=== PATIENT | female | born 1970 | race Caucasian/White ===

== ENCOUNTER 2016-05-30 15:19 | Inpatient (IN) | payer BC ==
[2016-05-30] MEDS ORDERED: DEXTROSE 5%-1/2 NORMAL SALINE 1,000 ML IV PRN (15:58)
[2016-05-30] MEDS ORDERED: INFLUENZA ADLT QUAD (36MOS+) 2016-17 VAC 0.5 ML SYR IM PRN (16:34)
[2016-05-30 17:20] LABS: ABSOLUTE BASOPHILS # (AUTO) 0.1 10^3/uL (0.0-0.2); ABSOLUTE EOSINOPHILS # (AUTO) 0.2 10^3/uL (0.0-0.6); ABSOLUTE LYMPHOCYTES (AUTO) 2.9 10^3/uL (0.5-4.7); ABSOLUTE MONOCYTES (AUTO) 0.6 10^3/uL (0.1-1.4); ABSOLUTE NEUT (AUTO) 6.3 10^3/uL (1.7-8.2); BASOPHILS % (AUTO) 0.7 % (0-2); EOSINOPHILS % (AUTO) 2.2 % (0-6); HEMATOCRIT 37.1 % (36.0-47.0); HEMOGLOBIN 12.6 g/dL (12.0-15.5); HGB HCT DIFFERENCE 0.7; MEAN CORPUSCULAR HEMOGLOBIN 29.2 pg (27.0-33.4); MEAN CORPUSCULAR HGB CONC 34.1 g/dL (32.0-36.0); MEAN CORPUSCULAR VOLUME 86 fl (80-97); MONOCYTES % (AUTO) 6.3 % (3-13); RED BLOOD COUNT 4.32 10^6/uL (3.72-5.28); RED CELL DISTRIBUTION WIDTH 12.6 % (11.5-14.0); SEGMENTED NEUTROPHILS % (AUTO) 61.8 % (42-78); WHITE BLOOD COUNT 10.1 10^3/uL (4.0-10.5)
[2016-05-30] MEDS: AMPICILLIN SODIUM/SULBACTAM NA 3 GM in NORMAL SALINE 100 ML IV SCH (17:37)
[2016-05-30 17:38] LABS: ALANINE AMINOTRANSFERASE 60 U/L (9-52); ALBUMIN 4.2 g/dL (3.5-5.0); ALKALINE PHOSPHATASE 82 U/L (38-126); ANION GAP 11 (5-19); ASPARTATE AMINO TRANSFERASE 42 U/L (14-36); BILIRUBIN,TOTAL 0.4 mg/dL (0.2-1.3); BLOOD UREA NITROGEN 25 mg/dL (7-20); CALCIUM 9.9 mg/dL (8.4-10.2); CARBON DIOXIDE 26 mmol/L (22-30); CHLORIDE 100 mmol/L (98-107); CREATININE RESULT 0.96 mg/dL (0.52-1.25); GLUCOSE 101 mg/dL (75-110); POTASSIUM 4.2 mmol/L (3.6-5.0); SODIUM 137.3 mmol/L (137-145); TOTAL PROTEIN 6.9 g/dL (6.3-8.2)
[2016-05-30] MEDS: OXYCODONE-ACETAMINOPHEN 5-325 MG TABLET PO PRN ×2 (18:20→18:28)
[2016-05-31] MEDS: AMPICILLIN SODIUM/SULBACTAM NA 3 GM in NORMAL SALINE 100 ML IV SCH ×4 (00:26→18:15)
[2016-05-31] MEDS: OXYCODONE-ACETAMINOPHEN 5-325 MG TABLET PO PRN (04:59)
[2016-05-31] MEDS ORDERED: ENOXAPARIN SODIUM INJ 40 MG/0.4 ML DISP.SYRIN SUBCUT SCH (10:00)
--- NOTE | 2016-05-31 12:43 | XCELERA REPORT ---
[address] [address] Lower Extremity Venous Evaluation Name: VASILIY PROCTOR Age: 45 yrs Gender: Female : 1970 Patient Status: Inpatient Patient Location: 5\[id number]\529\[id number]\A Study Date: 05/30/2016 04:24 PM Procedure: Color flow and duplex imaging bilaterally of the veins of the lower extremities as well as the Common Femoral veins. Reason For Study: leg swelling and pain Ordering Physician: SUSAN HOWELL Performed By: Lizabeth Canada Right Sided Venous Evaluation Normal vessel filling wall to wall, compression and augmentation as well as Colour flow down to the infrageniculate veins. Left Sided Venous Evaluation Normal vessel filling wall to wall, compression and augmentation as well as Colour flow down to the infrageniculate veins. Interpretation Summary No duplex evidence of DVT or obstruction in the bilateral lower extremities. : SUSAN HOWELL > Susan Howell
[2016-06-01] MEDS: AMPICILLIN SODIUM/SULBACTAM NA 3 GM in NORMAL SALINE 100 ML IV SCH ×2 (00:53→05:16)
[2016-06-01 02:45] LABS: APPEARANCE,URINE SLIGHTLY-CLOUDY; BILIRUBIN,URINE NEGATIVE (NEGATIVE); GLUCOSE, URINE NEGATIVE (NEGATIVE); KETONES,URINE NEGATIVE (NEGATIVE); LEUKOCYTE ESTERASE,URINE LARGE (NEGATIVE); NITRITE,URINE NEGATIVE (NEGATIVE); PROTEIN,URINE NEGATIVE (NEGATIVE); URINE SPECIFIC GRAVITY 1.012; UROBILINOGEN,URINE NEGATIVE mg/dL (<2.0)
[2016-06-01 08:04] VITALS: BP 119/72
--- NOTE | 2016-06-01 10:50 | PDOC PROGRESS REPORT ---
Subjective Progress Note for:: 05/31/16 Subjective:: The patient feels much better, no pain in left leg wound. Wants to go home. Physical Exam Vital Signs: Temp Pulse Resp BP Pulse Ox 98.2 F 99 18 119/72 100 05/31/16 12:00 05/31/16 12:00 05/31/16 12:00 05/31/16 12:00 05/31/16 12:00 Intake & Output 05/30/16 05/31/16 06/01/16 06:59 06:59 06:59 Intake Total 1325 Balance 1325 Weight 78.6 kg Additional comments: CONSTITUTIONAL:WDWN lady, moderately increased BMI. No acute distress. RESPIRATORY: Normal respiratory effort at rest. EXTREMITIES: lOWER: moderate chronic swelling on left. Area of erythema, skin swelling, is barely appreciable. Results Laboratory Results: 05/30/16 17:05 05/30/16 17:05 05/30/16 05/30/16 17:05 17:05 WBC 10.1 RBC 4.32 Hgb 12.6 Hct 37.1 MCV 86 MCH 29.2 MCHC 34.1 RDW 12.6 Plt Count 267 Seg Neutrophils % 61.8 Lymphocytes % 29.0 Monocytes % 6.3 Eosinophils % 2.2 Basophils % 0.7 Absolute Neutrophils 6.3 Absolute Lymphocytes 2.9 Absolute Monocytes 0.6 Absolute Eosinophils 0.2 Absolute Basophils 0.1 Sodium 137.3 Potassium 4.2 Chloride 100 Carbon Dioxide 26 Anion Gap 11 BUN 25 H Creatinine 0.96 Est GFR ( Amer) > 60 Est GFR (Non-Af Amer) > 60 Glucose 101 Calcium 9.9 Total Bilirubin 0.4 AST 42 H ALT 60 H Alkaline Phosphatase 82 Total Protein 6.9 Albumin 4.2 Assessment & Plan - Diagnosis (1) Cellulitis Qualifiers: Site of cellulitis: extremity Site of cellulitis of extremity: lower extremity Laterality: left Qualified Code(s): L03.116 - Cellulitis of left lower limb Is this a current diagnosis for this admission?: YesPlan: In this patient, with rapid response to IV antibiotic. I plan to disscharge her home on 06/01/16. With continued oral antibiotic.
--- NOTE | 2016-06-11 10:23 | DISCHARGE SUMMARY E ---
Discharge Summary NAME: VASILIY PROCTOR : 1970 AGE: 45Y ADMITTED: 05/30/2016 DISCHARGED: 06/01/2016 ADMITTING DIAGNOSES: 1. Cellulitis in the left leg. 2. Lymphedema of left leg. 3. Tobacco use disorder. 4. Depression with anxiety. 5. Hypertension. DISCHARGE DIAGNOSES: 1. Cellulitis in the left leg, improvement, almost resolution of cellulitis. 2. Lymphedema of left leg. 3. Tobacco use disorder. 4. Depression with anxiety. 5. Hypertension. HISTORY AND PHYSICAL: Please see admission H and P. HOSPITAL COURSE: The patient was admitted and placed on IV antibiotics. Normal precautions were taken and the patient was kept on her normal medication. The patient was re-evaluated on the day after admission and there was dramatic improvement in the left leg, less swelling, and the area of erythema and tenderness was almost invisible. The plan is to discharge the patient. The patient is to continue on oral Augmentin for 5-7 days. Follow up in the office by appointment. She is to continue her normal medications. She is to continue use of compression stockings. Follow up with Dr. Howell by appointment in 1 week. DICTATING PHYSICIAN: SUSAN HOWELL M.D. [id number] PHY#: [id number] ID: [id number] JOB#: [id number] ACCT: [id number] cc:SUSAN HOWELL M.D. >
== END 2016-06-01 08:50 | disposition home or self-care (01) | DRG 603 ==
LOC: 5 15:19
PROVIDERS: ADMIT Surgery; ATTEND Surgery
PROC: 3E0234Z Introduction of Serum, Toxoid and Vaccine into Muscle, Percutaneous Approach (ICD-10-PCS; principal; 2016-06-01)
DX: L03.116 Cellulitis of left lower limb (principal); I80.3 Phlebitis and thrombophlebitis of lower extremities, unspecified; I10 Essential (primary) hypertension; F17.210 Nicotine dependence, cigarettes, uncomplicated; F41.8 Other specified anxiety disorders; G47.00 Insomnia, unspecified; L81.9 Disorder of pigmentation, unspecified; F32.9 Major depressive disorder, single episode, unspecified; F41.9 Anxiety disorder, unspecified; Z90.49 Acquired absence of other specified parts of digestive tract; Z79.899 Other long term (current) drug therapy; Z23 Encounter for immunization
CPT/HCPCS: 36415; 80048; 80076; 81001; 85025; 90686; 93970; 94799; J0295; J1650

== ENCOUNTER → 2016-06-27 | Outpatient (CLI) | payer BC | LOC: RAD 20:50 | PROVIDERS: ATTEND Surgery | DX: I80.3 Phlebitis and thrombophlebitis of lower extremities, unspecified (principal) | CPT/HCPCS: 73720; A9576 ==

== ENCOUNTER 2017-07-27 15:11 | Emergency (ER) | payer BC ==
--- NOTE | 2017-07-27 16:44 | ER Document Report ---
ED Medical Screen (RME) - General Chief Complaint: Sore Throat Stated Complaint: BODY ACHES Time Seen by Provider: 07/27/17 16:34 TRAVEL OUTSIDE OF THE [place] IN LAST 30 DAYS: No - HPI Notes: 07/27/17 16:41 Patient is a 46-year-old female who presents to the ED complaining of a dull chest pain that is new for her. Patient states that she has never experienced this chest pain before and it started over the last day. Patient states that she also has pain radiating into her jaw and into her shoulders bilaterally. Patient has a past medical history of PAD with >80% occlusion to her left LE as well as hypertension. Patient states that she is otherwise eating and drinking without difficulties. She is urinating normally and having normal bowel movements. Patient states her next appointment with her vascular provider is the first weekend in July. Patient states that she is concerned about her heart and wants those tests performed. Patient states that she has not had any cold symptoms. Denies any headache, fever, URI, palpitations, syncope, cough, shortness of breath, wheeze, dyspnea, abdominal pain, nausea/vomiting/diarrhea, urinary retention, dysuria, hematuria, loss of control of bowel or bladder, muscle paralysis/weakness, or rash. I have treated and performed a rapid initial assessment of this patient. A comprehensive ED assessment and evaluation of the patient, analysis of test results and completion of medical decision making process will be conducted by additional ED providers. PHYSICAL EXAMINATION: GENERAL: Well-appearing, well-nourished and in no acute distress. A&Ox4. Answers questions appropriately. Vitals: Tachycardic 110 during my exam LUNGS: Breath sounds clear to auscultation bilaterally and equal. No wheezes rales or rhonchi. HEART: Regular rate and rhythm without murmurs, rubs, gallops. Chest: non-tender. no flail chest. PSYCH: anxious, normal affect. - Related Data Allergies/Adverse Reactions: Perch (fish) Allergy (Intermediate, Uncoded 05/30/16 17:55) Past Medical History - Past Medical History Cardiac Medical History: Reports: Hx Hypertension Pulmonary Medical History: Denies: Hx Asthma, Hx Tuberculosis Neurological Medical History: Denies: Hx Seizures GI Medical History: Reports: Hx Pancreatitis Psychiatric Medical History: Reports: Hx Depression Past Surgical History: Reports: Hx Cholecystectomy, Hx Herniorrhaphy. Denies: Hx Pacemaker - Immunizations Hx Diphtheria, Pertussis, Tetanus Vaccination: Yes Physical Exam - Vital signs Vitals: Temp Pulse Resp BP Pulse Ox 98.7 F 116 H 18 135/89 H 97 07/27/17 15:32 07/27/17 15:32 07/27/17 15:32 07/27/17 15:32 07/27/17 15:32 Course - Vital Signs Vital signs: Temp Pulse Resp BP Pulse Ox 98.7 F 116 H 18 135/89 H 97 07/27/17 15:32 07/27/17 15:32 07/27/17 15:32 07/27/17 15:32 07/27/17 15:32
[2017-07-27] MEDS ORDERED: ASPIRIN 81 MG TABLET, CHEWABLE PO ONE (16:48)
[2017-07-27] MEDS ORDERED: LORAZEPAM INJ 2 MG/1 ML VIAL IV ONE ×2 (16:48→23:02)
--- NOTE | 2017-07-27 17:39 | RADIOLOGY REPORT (SQ) ---
EXAM DESCRIPTION: CHEST SINGLE VIEW COMPLETED DATE/TIME: 07/27/2017 5:11 pm REASON FOR STUDY: chest pain COMPARISON: 03/21/2012 EXAM PARAMETERS: NUMBER OF VIEWS: One view. TECHNIQUE: Single frontal radiographic view of the chest acquired. RADIATION DOSE: NA LIMITATIONS: None. FINDINGS: LUNGS AND PLEURA: No acute opacities, masses or pneumothorax. No pleural effusion. MEDIASTINUM AND HILAR STRUCTURES: Stable. HEART AND VASCULAR STRUCTURES: Heart normal in size. Normal vasculature. BONES: No acute findings. HARDWARE: None in the chest. OTHER: No other significant finding. IMPRESSION: NO ACUTE RADIOGRAPHIC FINDING IN THE CHEST. TECHNICAL DOCUMENTATION: JOB ID: [id number] [place]-72 2010 [employer]- All Rights Reserved Reading location - IP/workstation name: [email or web address]
[2017-07-27 17:55] LABS: ABSOLUTE BASOPHILS # (AUTO) 0.1 10^3/uL (0.0-0.2); ABSOLUTE EOSINOPHILS # (AUTO) 0.2 10^3/uL (0.0-0.6); ABSOLUTE LYMPHOCYTES (AUTO) 2.2 10^3/uL (0.5-4.7); ABSOLUTE MONOCYTES (AUTO) 0.6 10^3/uL (0.1-1.4); ABSOLUTE NEUT (AUTO) 9.4 10^3/uL (1.7-8.2); BASOPHILS % (AUTO) 0.7 % (0-2); EOSINOPHILS % (AUTO) 1.8 % (0-6); HEMATOCRIT 35.5 % (36.0-47.0); HEMOGLOBIN 12.2 g/dL (12.0-15.5); LYMPHOCYTES % (AUTO) 17.8 % (13-45); MEAN CORPUSCULAR HEMOGLOBIN 29.5 pg (27.0-33.4); MEAN CORPUSCULAR HGB CONC 34.2 g/dL (32.0-36.0); MEAN CORPUSCULAR VOLUME 86 fl (80-97); MONOCYTES % (AUTO) 4.8 % (3-13); PLATELET COUNT 337 10^3/uL (150-450); RED BLOOD COUNT 4.13 10^6/uL (3.72-5.28); RED CELL DISTRIBUTION WIDTH 12.9 % (11.5-14.0); SEGMENTED NEUTROPHILS % (AUTO) 74.9 % (42-78); TOTAL CELLS COUNTED % (AUTO) 100 %; WHITE BLOOD COUNT 12.6 10^3/uL (4.0-10.5)
--- NOTE | 2017-07-27 17:55 | EKG REPORT ---
SEVERITY:- OTHERWISE NORMAL ECG - SINUS TACHYCARDIA : Confirmed by: Jacinto Rios MD 27-Jul-2017 17:55:03
[2017-07-27 17:58] LABS: PROTHROMBIN TIME 12.6 SEC (11.4-15.4)
[2017-07-27 17:59] LABS: PARTIAL THROMBOPLASTIN TIME 34.2 SEC (23.5-35.8)
[2017-07-27 19:25] LABS: CREATINE KINASE MB 2.83 ng/mL (<4.55)
[2017-07-27 19:27] LABS: TROPONIN I < 0.012 ng/mL
--- NOTE | 2017-07-27 19:56 | ER Document Report ---
ED General - General Chief Complaint: Sore Throat Stated Complaint: BODY ACHES Time Seen by Provider: 07/27/17 16:34 Mode of Arrival: Ambulatory Information source: Patient Notes: Patient is a 46-year-old female who presents to the emergency department with complaints of chest pain. Patient states that when she woke up at 1 PM this afternoon she had sharp stabbing pain to her chest and tightness in her jaw neck and left ear. Patient reports that the pain is now down to 1 out of 5 after taking the aspirin in triage as well as the Ativan. Patient denies any headache, nausea, diarrhea, diaphoresis or shortness of breath. Patient reports that she has been under a lot of stress at work lately and has been working extra hours including overnight. Patient reports past medical history of hypertension ADHD, pancreatitis, peripheral artery disease. Patient reports past surgical history cholecystectomy and an umbilical hernia repair. 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 Meyer. Dr. Banks is her primary care provider. TRAVEL OUTSIDE OF THE [place] IN LAST 30 DAYS: No - Related Data Allergies/Adverse Reactions: Perch (fish) Allergy (Intermediate, Uncoded 05/30/16 17:55) Past Medical History - Social History Smoking Status: Current Every Day Smoker Chew tobacco use (# tins/day): No Frequency of alcohol use: None Drug Abuse: None Family History: Reviewed & Not Pertinent Patient has suicidal ideation: No Patient has homicidal ideation: No - Past Medical History Cardiac Medical History: Reports: Hx Hypercholesterolemia, Hx Hypertension Pulmonary Medical History: Denies: Hx Asthma, Hx Tuberculosis Neurological Medical History: Denies: Hx Seizures Renal/ Medical History: Denies: Hx Peritoneal Dialysis GI Medical History: Reports: Hx Pancreatitis Psychiatric Medical History: Reports: Hx Depression Past Surgical History: Reports: Hx Cholecystectomy, Hx Herniorrhaphy. Denies: Hx Pacemaker - Immunizations Hx Diphtheria, Pertussis, Tetanus Vaccination: Yes Hx Pneumococcal Vaccination: 03/31/04 Review of Systems - Review of Systems Constitutional: No symptoms reported EENT: See HPI Cardiovascular: See HPI Respiratory: No symptoms reported Gastrointestinal: No symptoms reported Genitourinary: No symptoms reported Female Genitourinary: No symptoms reported Musculoskeletal: No symptoms reported Skin: No symptoms reported Hematologic/Lymphatic: No symptoms reported Neurological/Psychological: No symptoms reported Physical Exam - Vital signs Vitals: Temp Pulse Resp BP Pulse Ox 98.7 F 116 H 18 135/89 H 97 07/27/17 15:32 07/27/17 15:32 07/27/17 15:32 07/27/17 15:32 07/27/17 15:32 - Notes Notes: PHYSICAL EXAMINATION: GENERAL: Well-appearing, well-nourished and in no acute distress. HEAD: Atraumatic, normocephalic. EYES: Pupils equal round and reactive to light, extraocular movements intact, conjunctiva are normal. ENT: Nares patent, oropharynx clear without exudates. Moist mucous membranes. NECK: Normal range of motion, supple without lymphadenopathy LUNGS: Breath sounds clear to auscultation bilaterally and equal. No wheezes rales or rhonchi. HEART: Regular rate and rhythm without murmurs ABDOMEN: Soft, nontender, nondistended abdomen. No guarding, no rebound. No masses appreciated. Female : deferred Musculoskeletal: Normal range of motion, no pitting or edema. No cyanosis. NEUROLOGICAL: Cranial nerves grossly intact. Normal speech, normal gait. Normal sensory, motor exams PSYCH: Normal mood, normal affect. SKIN: Warm, Dry, normal turgor, discoloration noted to left lower extremity, patient states this is chronic from her peripheral artery disease, scattered discoloration to patient's bilateral arms which patient states is from his skin condition. Course - Re-evaluation Re-evalutation: 46-year-old female presents with complaint of new onset chest pain at 1 PM today with associated left-sided jaw and neck pain also radiating into her left ear. Patient denies ever having anything like this before. Patient does have cardiac risk factors such as hypertension and peripheral artery disease she is also a smoker. We will perform complete cardiac workup. Patient rates pain currently 1 out of 5. Patient denies ever having a stress test. Labs have been drawn multiple times and have hemolyzed. Additional staff members attempting venipuncture. Patient is in a sinus rhythm on the monitoring tech. Vital signs are stable. Patient's EKG showed sinus tachycardia with a rate of 105, no ST segment deviations, normal axis. Chest x-ray is unremarkable. Initial troponin is negative. Upon reassessment at 2145, patient is complaining of 2 out of 5 burning type of pain to her midsternal chest. Will order GI cocktail while awaiting repeat enzyme draw scheduled for 2199. Patient also states that she has a burning in the back of her throat, throat appears normal with no erythema. Patient is very anxious and tearful. Patient remains mildly tachycardic in the 110-115 range. Repeat troponin is negative. Patient remains mildly tachycardic and reports that she has mild chest pain. Patient does appear to be anxious. Cannot rule out patient for PE Via Perk criteria and patient does have risk factors such as smoking 1 pack per day. Due to patient's chest pain, tachycardia and smoking history we will perform chest CTA to evaluate for pulmonary embolism. Patient is otherwise stable and normotensive. Patients heart score is 2. Patient reports resolution of her symptoms after the GI cocktail. CTA negative for pulmonary embolism or pneumonia. Discussed all test results with patient, patient wishes to be discharged at this time she states that she is better. Explained to patient that she will need to have close follow-up with her primary care physician as patient reports that she is feeling well enough for discharge. - Vital Signs Vital signs: Temp Pulse Resp BP Pulse Ox 98.0 F 116 H 20 114/89 H 97 07/28/17 00:00 07/27/17 15:32 07/28/17 00:00 07/27/17 21:00 07/28/17 00:00 - Laboratory Result Diagrams: 07/27/17 17:45 07/27/17 20:00 Laboratory results interpreted by me: 07/27/17 07/27/17 17:45 20:00 WBC 12.6 H Hct 35.5 L Absolute Neutrophils 9.4 H Potassium 3.4 L Carbon Dioxide 33 H Glucose 150 H Total Bilirubin < 0.1 L Discharge - Discharge Clinical Impression: Chest pain Qualifiers: Chest pain type: unspecified Qualified Code(s): R07.9 - Chest pain, unspecified Condition: Stable Disposition: HOME, SELF-CARE Additional Instructions: Chest Pain of Unclear Cause The exact cause of your chest pain isn't clear. Fortunately, there is no evidence of a dangerous medical condition. Further testing may be required to find the source of the pain. Most often, we find that this pain is coming from the chest wall -- the muscles or rib joints in the chest. But chest pain can come from the lung and lung lining, the esophagus, the heart valves or heart lining, and even the stomach or gallbladder. Rest. Eat lightly until the pain is gone. We may prescribe medicine for pain and inflammation. You should call the physician immediately if the pain radiates to the shoulder, jaw or arms; if you start to run a fever or develop a cough; or if you develop shortness of breath, or other new or alarming symptoms. Your cardiac work-up (labs, ekg and chest xray) are all normal. Your CTA shows no blood clots. This is reassuring. Please follow up with your primary care physician in the next few days for further evaluation of your chest pain. Referrals: LEIF BANKS MD [Primary Care Provider] - Follow up as needed
[2017-07-27 20:19] LABS: ALANINE AMINOTRANSFERASE 50 U/L (9-52); ALKALINE PHOSPHATASE 96 U/L (38-126); ANION GAP 7 (5-19); ASPARTATE AMINO TRANSFERASE 36 U/L (14-36); BLOOD UREA NITROGEN 17 mg/dL (7-20); CALCIUM 9.6 mg/dL (8.4-10.2); CARBON DIOXIDE 33 mmol/L (22-30); CHLORIDE 101 mmol/L (98-107); CREATINE KINASE 112 U/L (30-135); GLUCOSE 150 mg/dL (75-110); POTASSIUM 3.4 mmol/L (3.6-5.0); SODIUM 140.7 mmol/L (137-145); TOTAL PROTEIN 6.9 g/dL (6.3-8.2)
[2017-07-27 20:20] LABS: BILIRUBIN,TOTAL < 0.1 mg/dL (0.2-1.3)
[2017-07-27] MEDS ORDERED: LIDOCAINE 2% VISCOUS SOLN 20 ML UDCUP PO ONE (21:50)
[2017-07-27] MEDS ORDERED: METOCLOPRAMIDE HCL ORAL SOLN 10 MG/10 ML UDCUP PO ONE (21:50)
[2017-07-27] MEDS ORDERED: MAG HYDROX/AL HYDROX/SIMETH SUSP 30 ML UDCUP PO ONE (21:50)
[2017-07-27 22:37] VITALS: BP 114/89
--- NOTE | 2017-07-27 23:55 | RADIOLOGY REPORT (SQ) ---
EXAM DESCRIPTION: CTA CHEST CLINICAL HISTORY: 46 years Female, chest pain with tachycardia COMPARISON: None. NUMBER OF VIEWS/TECHNIQUE: 1/AP Technique: IV contrast. Multiplanar reformat. This exam was performed according to our departmental dose-optimization program, which includes automated exposure control, adjustment of the mA and/or kV according to patient size and/or use of iterative reconstruction technique. [facility]: Dose Right [facility]: CareDose [facility]: Dose Right [facility]: Teradose 4D [facility]: Clinicient LIMITATIONS: None. Findings: No pulmonary embolus. No right ventricular strain. Clear lungs. Cholecystectomy clips. Mild disc desiccation. Inferior neck, axillae, mediastinum, lungs, airway, lymphatics, heart, vasculature, upper abdomen, and musculoskeleton appear unremarkable. Impression: No acute cardiopulmonary findings. No pulmonary embolus.
== END 2017-07-28 00:48 | disposition home or self-care (01) ==
LOC: ER 15:11
DX: R07.9 Chest pain, unspecified (principal); J02.9 Acute pharyngitis, unspecified; M79.1 Myalgia; R68.84 Jaw pain; M54.2 Cervicalgia; H92.02 Otalgia, left ear; I10 Essential (primary) hypertension; F90.9 Attention-deficit hyperactivity disorder, unspecified type; Z90.49 Acquired absence of other specified parts of digestive tract; Z79.899 Other long term (current) drug therapy; F17.200 Nicotine dependence, unspecified, uncomplicated
CPT/HCPCS: 93005; 96376; 99285; 96374; 36415; 82553; 82550; 85025; 85610; 85730; 80053; 84484; 71045; 71275; 93010; J3490; J2060

== ENCOUNTER → 2019-04-08 | Outpatient (CLI) | payer BC ==
--- NOTE | 2019-04-08 11:24 | WOMENS IMAGING REPORT ---
EXAM DESCRIPTION: BONE DENSITY HIP/SPINE COMPLETED DATE/TIME: 04/08/2019 11:10 am REASON FOR STUDY: M88.9 OSTEITIS DEFORMANS OF UNSPECIFIED BONE M88.9 OSTEITIS DEFORMANS OF UNSPECIF IED BONE Z12.31 ENCNTR SCREEN MAMMOGRAM FOR MALIGNANT NEOPLASM OF RONALDO COMPARISON: None. TECHNIQUE: Dual-Energy X-ray Absorptiometry (DEXA) of the AP Spine and Hip. LIMITATIONS: None. FINDINGS: LUMBAR SPINE: The bone mineral density (BMD) measured from L1-L4 in the AP projection correlates with a T-score of 0.6, which is normal as defined by the World Health Organization. BMD Change vs Baseline: N/A HIP: The bone mineral density (BMD) measured in the left hip correlates with a T-score of 0.6, which is no rmal as defined by the World Health Organization. BMD Change vs Baseline: N/A 10 year Fracture Risk Assessment: Major Osteoporotic Fracture: Not available. Hip Fracture: Not available. IMPRESSION: 1. LUMBAR SPINE WHO CLASSIFICATION: NORMAL. 2. HIP WHO CLASSIFICATION: NORMAL. OVERALL ASSESSMENT: WHO CLASSIFICATION: NORMAL. COMMENT: The World Health Organization defines low BMD as follows: T-score: Normal: Greater than -1.0 Osteopenia: Between -1.0 and -2.5 Osteoporosis: Less than -2.5 without fractures Established osteoporosis: Less than -2.5 with fractures In general, you may wish to consider: Diagnosis Treatment Follow-up DEXA Normal BMD Prevention 2-3 years Osteopenia Prevention/Therapy 1-2 years Osteoporosis Therapy Yearly TECHNICAL DOCUMENTATION: JOB ID: [id number] 1975 [employer]- All Rights Reserved Reading location - IP/workstation name: [email or web address]
--- NOTE | 2019-04-08 11:26 | WOMENS IMAGING REPORT ---
EXAM DESCRIPTION: 3D SCREENING MAMMO BILAT COMPLETED DATE/TIME: 04/08/2019 11:10 am REASON FOR STUDY: Z12.31 SCREENING MAMMO M88.9 OSTEITIS DEFORMANS OF UNSPECIFIED BONE Z12.31 ENCNT R SCREEN MAMMOGRAM FOR MALIGNANT NEOPLASM OF RONALDO COMPARISON: None. EXAM PARAMETERS: Views: Standard craniocaudal and mediolateral oblique views of each breast recorded using digital acquisition and breast tomosynthesis. Read with the assistance of CAD. .[facility] - [facility] Sales Counselor Version 9.2 LIMITATIONS: None. FINDINGS: No suspicious masses, suspicious calcifications or architectural distortion. No areas of c oncern. IMPRESSION: NEGATIVE MAMMOGRAM. BIRADS 1. BREAST DENSITY: b. There are scattered areas of fibroglandular density. BIRAD: ASSESSMENT: 1 NEGATIVE RECOMMENDATION: ROUTINE SCREENING COMMENT: The patient has been notified of the results by letter per MQSA requirements. Additional no tification policies are in place for contacting patient with suspicious or incomplete findings. Quality ID #[id number]: The [employer] recommends an annual screening mammogram for women aged 40 years or over. This facility utilizes a reminder system to ensure that all patients receive reminder letters, and/or direct phone calls for appointments. This includes reminders for routine scr eening mammograms, diagnostic mammograms, or other Breast Imaging Interventions when appropriate. Th is patient will be placed in the appropriate reminder system. TECHNICAL DOCUMENTATION: FINDING NUMBER: (1) ASSESSMENT: (1) JOB ID: [id number] [employer]- All Rights Reserved Reading location - IP/workstation name: [email or web address]
== END ==
LOC: WI 10:10
PROVIDERS: ATTEND Internal Medicine
DX: Z12.31 Encounter for screening mammogram for malignant neoplasm of breast (principal); M88.9 Osteitis deformans of unspecified bone
CPT/HCPCS: 77063; 77067; 77080

== ENCOUNTER 2019-05-16 09:18 | Emergency (ER) | payer BC ==
[2019-05-16 09:24] VITALS: BP 146/85
--- NOTE | 2019-05-16 09:29 | ER Document Report ---
ED General - General Chief Complaint: Sore Throat Stated Complaint: SORE THROAT/PAIN Time Seen by Provider: 05/16/19 09:28 Primary Care Provider: LEIF BANKS MD [Primary Care Provider] - Follow up in 3-5 days Notes: 48 y/o female presents for sore throat, nonproductive cough, swollen glands, and sinus drainage for 2 days. Pt states mother is sick with similar symptoms. Denies nausea/vomiting, fever, body aches, or abdominal pain. TRAVEL OUTSIDE OF THE [place] IN LAST 30 DAYS: No - Related Data Allergies/Adverse Reactions: Perch (fish) Allergy (Intermediate, Uncoded 05/16/19 09:31) Past Medical History - Social History Smoking Status: Unknown if Ever Smoked Family History: Reviewed & Not Pertinent - Past Medical History Cardiac Medical History: Reports: Hx Hypercholesterolemia, Hx Hypertension Pulmonary Medical History: Denies: Hx Asthma, Hx Tuberculosis Neurological Medical History: Denies: Hx Seizures Renal/ Medical History: Denies: Hx Peritoneal Dialysis GI Medical History: Reports: Hx Pancreatitis Psychiatric Medical History: Reports: Hx Depression Past Surgical History: Reports: Hx Cholecystectomy, Hx Herniorrhaphy. Denies: Hx Pacemaker - Immunizations Hx Diphtheria, Pertussis, Tetanus Vaccination: Yes Hx Pneumococcal Vaccination: 03/31/04 Review of Systems - Review of Systems Notes: Constitutional: Negative for fever. HENT: Positive for sore throat, sinus drainage, and cough. Eyes: Negative for visual changes. Cardiovascular: Negative for chest pain. Respiratory: Negative for shortness of breath. Gastrointestinal: Negative for abdominal pain, vomiting or diarrhea. Genitourinary: Negative for dysuria. Musculoskeletal: Negative for back pain. Skin: Negative for rash. Neurological: Negative for headaches, weakness or numbness. 10 point ROS negative except as marked above and in HPI. Physical Exam - Vital signs Vitals: Temp Pulse Resp BP Pulse Ox 98.5 F 90 18 146/85 H 98 05/16/19 09:22 05/16/19 09:22 05/16/19 09:22 05/16/19 09:22 05/16/19 09:22 - Notes Notes: GENERAL: Well-appearing, well-nourished and in no acute distress. HEAD: Atraumatic, normocephalic. EYES: Extraocular movements intact, sclera anicteric, conjunctiva are normal. ENT: Nares patent, oropharynx clear without exudates. No muffled voice, no trismus. No tonsilar hypertrophy. Uvula midline without edema. Moist mucous membranes. NECK: Normal range of motion, supple without lymphadenopathy or JVD. LUNGS: Breath sounds clear to auscultation bilaterally and equal. No wheezes rales or rhonchi. HEART: Regular rate and rhythm without murmurs, rubs or gallops. EXTREMITIES: Normal range of motion, no pitting or edema. No clubbing or cyanosis. NEUROLOGICAL: Cranial nerves II through XII grossly intact. Normal speech, normal gait. PSYCH: Normal mood, normal affect. SKIN: Warm, Dry, normal turgor, no rashes or lesions noted. Course - Re-evaluation Re-evalutation: 05/16/19 Nontoxic, well appearing 48 y/o female presents with URI symptoms. Able to fully open mouth. No obvious FAMILY [employer]VOCATE. Lungs clear to auscultation bilaterally. RRR. PE is otherwise unremarkable. Strep and flu test ordered. 05/16/19 10:04 Flu and strep negative. Will treat pt with symptomatic relief and give pt return precautions. Pt also given close follow up with PCP. Pt voices understanding and agrees with plan of care. - Vital Signs Vital signs: Temp Pulse Resp BP Pulse Ox 98.5 F 90 18 146/85 H 98 05/16/19 09:22 05/16/19 09:22 05/16/19 09:22 05/16/19 09:22 05/16/19 09:22 Discharge - Discharge Clinical Impression: Viral URI with cough Condition: Stable Disposition: HOME, SELF-CARE Instructions: Upper Respiratory Illness ([facility]), Viral Syndrome ([facility]) Additional Instructions: Your flu test and strep test were both negative. Your symptoms are most likely due to a virus which does not require antibiotics. Please take medication as prescribed. Please follow up with your primary care doctor in 3-5 days. Return immediately to ER for any worsening symptoms, including fever, coughing up blood, inability to open your mouth, difficulty swallowing, chest pain, shortness of breath, or any other symptoms that are concerning to you. Prescriptions: Benzonatate [Tessalon Perles 100 mg Capsule] 100 mg PO Q8HP PRN #40 capsule PRN Reason: Fexofenadine/Pseudoephedrine [Kimberli-D 24 Hour Tablet] 1 each PO DAILY #20 tab.er.24h Fluticasone Propionate [Flonase Nasal [place] 50 Mcg/[place] 16 gm] 2 sprays NASL Q12 #1 inhaler Forms: Return to Work Referrals: LEIF BANKS MD [Primary Care Provider] - Follow up in 3-5 days
[2019-05-16 10:02] LABS: A TYPE INFLUENZA AG NEGATIVE (NEGATIVE); B INFLUENZA AG NEGATIVE (NEGATIVE)
== END 2019-05-16 10:13 | disposition home or self-care (01) ==
LOC: ER 09:18
DX: J06.9 Acute upper respiratory infection, unspecified (principal); R05 Cough; J02.9 Acute pharyngitis, unspecified; R59.9 Enlarged lymph nodes, unspecified; R09.89 Other specified symptoms and signs involving the circulatory and respiratory systems
CPT/HCPCS: 87070; 87804; 87880; 99283